=== PATIENT | male | born 1970 | race Caucasian/White ===

== ENCOUNTER 2016-06-03 23:19 | Emergency (ER) | payer MEDICAID ==
[2016-06-03] MEDS ORDERED: KETOROLAC 30 MG/1 ML SDV IVP ONE (23:46)
[2016-06-03] MEDS ORDERED: NS 1,000 ML IV ONE (23:46)
[2016-06-03] MEDS ORDERED: HALOPERIDOL LACT 5 MG/ML INJ IVP ONE (23:46)
--- NOTE | 2016-06-03 23:48 | EDPHY ---
HPI/HX/ROS/PE/MDM Narrative: Chief complaint: Head pain HPI: 46-year-old male has been having chronic headaches for the past year presenting tonight complaining of 9/10 on bearable left-sided headache. It is exactly like his usual pain. Is he has been worked up for this extensively and has seen primary care, Neurology, and Neurosurgery. 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 Pain is described as a dull pain around his left ear. No hearing changes. No fit vision changes. No nausea or vomiting. Patient states that at best is a 4/10, right now is a 9/10. He does not take any usual medications for this. He did take 3 Tylenol today with no significant relief. He is presenting tonight stating that he just cannot tolerate this any more. He does have also history of depression. He is not suicidal. Is not taking any medications. No fevers or chills. He has had some associated neck stiffness and gets dry needling for this which has reduced his neck pain and spasm. There is nothing new. No fevers or chills. ROS: 10 point Review of Systems is negative except as noted in the HPI. Physical exam: Gen: Awake, Alert, No Distress HEENT: Nose: no rhinorrhea Eyes: PERRLA, EOMI Mouth: Moist mucosa Neck: Supple, no JVD Chest: nontender, lungs clear to auscultation Heart: S1, S2 normal, no murmur Abd: Soft, non-tender, no guarding Back: no CVA tenderness, no midline tenderness Ext: no edema, non-tender Skin: no rash Neuro: CN II-XII intact, Sensation grossly intact, Strength 5/5 in bilateral upper and lower extremities ED Course: 0056 patient is feeling better. Pain is down to a 6/10. He is asking to go home at this time. He does not want any further medications. He does have an appointment with his primary care physician at [facility] later this week. I have encouraged him to discuss with his primary care physician, his neurologist, and also his psychiatrist regarding how his pain is possibly multifactorial. I have encouraged him to return for any worsening symptoms. His symptoms are all chronic at this time there is no acute process or red flags suggesting acute intracranial process, neurologic process, infectious process at this time. - Data Points Medications Given: Discontinued Medications Diphenhydramine HCl (Benadryl Injection) 25 mg IVP EDNOW ONE Stop: 06/03/16 23:47 Last Admin: 06/04/16 00:10 Dose: 25 mg Haloperidol Lactate (Haldol Injection) 2.5 mg IVP EDNOW ONE Stop: 06/03/16 23:47 Last Admin: 06/04/16 00:15 Dose: 2.5 mg Sodium Chloride (Ns) 1,000 mls @ 0 mls/hr IV ONCE ONE PRN Reason: Wide Open Stop: 06/03/16 23:47 Last Admin: 06/04/16 00:05 Dose: 1,000 mls Ketorolac Tromethamine (Toradol) 30 mg IVP ONCE ONE Stop: 06/03/16 23:47 Last Admin: 06/04/16 00:16 Dose: 30 mg General Time Seen by Provider: 06/03/16 23:32 Initial Vital Signs: Initial Vital Signs Temperature (C) 36.6 C 06/03/16 23:23 Heart Rate 88 06/03/16 23:23 Respiratory Rate 16 06/03/16 23:23 Blood Pressure 122/89 H 06/03/16 23:23 O2 Sat (%) 95 06/03/16 23:23 O2 Delivery Mode Room Air Allergies/Adverse Reactions: No Allergies [NKDA] Allergy (Verified 06/03/16 23:26) Home Medications: Medication Instructions Recorded Gabapentin [Neurontin] 600 mg PO TID 03/03/14 Ibuprofen [Motrin (*)] 200 mg PO PRN PRN 03/03/14 Departure - Departure Disposition: Home, Routine, Self-Care Clinical Impression: Headache Condition: Good Instructions: General Headache (ED) Additional Instructions: Follow up with your primary care physician as scheduled this week for re- evaluation. Return to the emergency department for worsening pain, new symptoms, fevers, chills, or any other concerns. Referrals: [facility] FRAZIER [Primary Care Provider] - As per Instructions
[2016-06-04 01:22] VITALS: BP 109/80; PULSE 73; RESP 20; TEMP 98.1; O2SAT 92
== END 2016-06-04 01:23 | disposition home or self-care (01) ==
DX: R51 Headache (principal)
CPT/HCPCS: 96374; J1885